=== PATIENT | female | born 1950 | race Caucasian/White ===

== ENCOUNTER 2017-06-26 11:27 | Observation (INO) | END 2017-06-27 14:56 | disposition home or self-care (01) | DX: H33.21 Serous retinal detachment, right eye (principal); H43.11 Vitreous hemorrhage, right eye; I44.4 Left anterior fascicular block; R94.31 Abnormal electrocardiogram [ECG] [EKG]; I10 Essential (primary) hypertension; E78.5 Hyperlipidemia, unspecified; F32.9 Major depressive disorder, single episode, unspecified | CPT/HCPCS: 00145; 36430; 67108; 85025; 86850; 86900; 86901; 86920; 93005; G0378; J0131; J0171; J1100; J1885; J2270; J3010; J7120; P9035 ==